=== PATIENT | female | born 2000 | race African-American/Black ===

== ENCOUNTER 2019-11-02 12:06 | Observation (INO) | payer MEDICAID, MEDICARE ==
[~2019-11-02] VITALS: Ht 167.6 cm; Wt 68.0 kg
[2019-11-02 14:01] LABS: CLARITY URINE CLOUDY (CLEAR); COLOR URINE YELLOW (YELLOW); KETONES URINE NEGATIVE (NEGATIVE); LEUKOCYTE ESTERASE URINE 3+ (NEGATIVE); NITRITE URINE NEGATIVE (NEGATIVE); OCCULT BLOOD URINE NEGATIVE (NEGATIVE); PROTEIN URINE NEGATIVE (NEGATIVE); SPECIFIC GRAVITY URINE 1.004 (1.005-1.030); UROBILINOGEN URINE 0.2 E.U./dL (0.2-1.0)
[2019-11-02] MEDS ORDERED: CEFAZOLIN 2,000 MG in DEXT 5% WATER 100 ML IV SCH ×2 (15:15→15:30)
== END 2019-11-02 18:15 | disposition home or self-care (01) ==
LOC: 8 EST LDRP 12:06
PROVIDERS: ADMIT Obstetrics & Gynecology; ATTEND Obstetrics & Gynecology
DX: O26.893 Other specified pregnancy related conditions, third trimester (principal); Z3A.28 28 weeks gestation of pregnancy
CPT/HCPCS: 76805; 76818; 81003; 87086; 99281; G0378; J0690; J7060; 96360; 96361; 96365

== ENCOUNTER 2020-01-05 03:53 | Inpatient (IN) | payer MEDICAID ==
[~2020-01-05] VITALS: Ht 170.2 cm; Wt 67.6 kg
[2020-01-05] MEDS ORDERED: PREN-182 PO (04:25)
[2020-01-05] MEDS ORDERED: LACTATED RINGERS 1,000 ML IV SCH (04:25)
[2020-01-05] MEDS ORDERED: DEXT 5%/LR + PITOCIN 20UNITS/L 1,000 ML IV SCH ×2 (04:25→07:43)
[2020-01-05] MEDS ORDERED: FOLI-43 MT (04:26)
[2020-01-05] MEDS ORDERED: MISOPROSTOL 200MCG TABLET VG SCH (04:30)
[2020-01-05] MEDS ORDERED: METHYLERGONOVINE MALEATE 0.2 MG/ML IM PRN (04:30)
[2020-01-05] MEDS ORDERED: LIDOCAINE HCL 1% 20ML VIAL (Pyxis) INJ INFIL SCH (04:30)
[2020-01-05] MEDS ORDERED: CARBOPROST TROMETHAMINE 250 MCG/ML AMPUL IM PRN (04:30)
[2020-01-05] MEDS ORDERED: BUTORPHANOL TARTRATE 2 MG/ML VIAL IV PRN (04:30)
[2020-01-05] MEDS: AMPICILLIN 2,000 MG in SODIUM CHLORIDE 0.9% 100 ML IV SCH ×2 (05:19→05:25)
[2020-01-05 05:42] LABS: CLARITY URINE CLEAR (CLEAR); COLOR URINE YELLOW (YELLOW); KETONES URINE 1+ (NEGATIVE); LEUKOCYTE ESTERASE URINE 2+ (NEGATIVE); NITRITE URINE NEGATIVE (NEGATIVE); OCCULT BLOOD URINE 2+ (NEGATIVE); PH URINE 6.5 (4.5-8.0); PROTEIN URINE NEGATIVE (NEGATIVE); SPECIFIC GRAVITY URINE 1.005 (1.005-1.030); UROBILINOGEN URINE 0.2 E.U./dL (0.2-1.0)
[2020-01-05 05:45] LABS: BASOPHILS % 0.2 % (0.0-2.0); EOSINOPHILS % 0.1 % (0.0-5.0); HEMATOCRIT. 32.8 % (36.0-48.0); HEMOGLOBIN. 10.7 g/dL (12.0-16.0); LYMPHOCYTES % 7.6 % (20.0-50.0); MEAN CORPUSCULAR HEMOGLOBIN 26.9 pg (28.0-32.0); MEAN CORPUSCULAR VOLUME 82.6 fL (81.0-99.0); MEAN PLATELET VOLUME 10.5 fl (7.4-10.4); MONOCYTES % 13.1 % (2.0-8.0); PLATELET 169 x1000/uL (130-400); RED BLOOD CELL COUNT 3.97 mill/uL (4.2-5.4); RED CELL DISTRIBUTION WIDTH 15.3 % (11.6-14.6)
[2020-01-05 06:08] LABS: INR 0.9; PARTIAL THROMBOPLASTIN TIME 28.2 sec (23.4-31.0)
[2020-01-05 06:23] LABS: *AMPHETAMINES SCREEN URINE NEGATIVE (NEGATIVE); *BARBITURATES SCREEN URINE NEGATIVE (NEGATIVE); *BENZODIAZEPINES SCREEN URINE NEGATIVE (NEGATIVE); *COCAINE SCREEN URINE NEGATIVE (NEGATIVE); HEPATITIS B SURFACE ANTIGEN NEGATIVE; METHADONE URINE SCREEN NEGATIVE (NEGATIVE)
[2020-01-05 06:24] LABS: OPIATES URINE SCREEN NEGATIVE (NEGATIVE); PHENCYCLIDINE URINE SCREEN NEGATIVE (NEGATIVE)
[2020-01-05 06:25] LABS: CANNABINOID URINE SCREEN PRESUMTIVE POSITIVE (NEGATIVE)
[2020-01-05] MEDS ORDERED: ROPIVACAINE HCL/PF EPIDURAL 200 ML EPI SCH (06:45)
[2020-01-05] MEDS ORDERED: RHO(D) IMMUNE GLOBULIN 300 MCG/SYR IM PRN (07:45)
[2020-01-05] MEDS ORDERED: IBUPROFEN 400MG TABLET PO PRN (07:45)
[2020-01-05] MEDS ORDERED: BENZOCAINE/LANOLIN/ALOE VERA SPRAY TOP PRN (07:45)
[2020-01-05 10:45] VITALS: BP 103/47
[2020-01-05 11:00] VITALS: BP 115/61
[2020-01-05] MEDS ORDERED: AMPICILLIN 1,000 MG in SODIUM CHLORIDE 0.9% 50 ML IV SCH (11:00)
[2020-01-05] MEDS: IBUPROFEN 800MG TABLET PO PRN ×2 (14:01→20:31)
[2020-01-05 20:21] VITALS: BP 101/67
[2020-01-06 04:00] VITALS: BP 104/57
[2020-01-06] MEDS: IBUPROFEN 800MG TABLET PO PRN ×2 (04:51→13:56)
[2020-01-06 06:32] LABS: BASOPHILS % 0.4 % (0.0-2.0); EOSINOPHILS % 0.5 % (0.0-5.0); HEMATOCRIT. 25.5 % (36.0-48.0); HEMOGLOBIN. 8.5 g/dL (12.0-16.0); LYMPHOCYTES % 17.5 % (20.0-50.0); MEAN CORPUSCULAR HEMOGLOBIN 27.2 pg (28.0-32.0); MEAN CORPUSCULAR VOLUME 81.8 fL (81.0-99.0); MEAN PLATELET VOLUME 10.4 fl (7.4-10.4); MONOCYTES % 13.6 % (2.0-8.0); PLATELET 153 x1000/uL (130-400); RED BLOOD CELL COUNT 3.11 mill/uL (4.2-5.4); RED CELL DISTRIBUTION WIDTH 15.2 % (11.6-14.6)
[2020-01-06 08:00] VITALS: BP 99/52
[2020-01-06] MEDS: PHENOL/SODIUM PHENOLATE 1.4% SRPAY 177ML MM PRN ×2 (13:57→22:06)
[2020-01-06 14:30] VITALS: BP 112/72
[2020-01-07] MEDS ORDERED: IBUP-2030 PO (01:01)
[2020-01-07] MEDS ORDERED: FERR325T6 MT (01:01)
[2020-01-07 04:00] VITALS: BP 108/60
[2020-01-07 07:39] VITALS: BP 106/54
[2020-01-07] MEDS: PHENOL/SODIUM PHENOLATE 1.4% SRPAY 177ML MM PRN (08:33)
[2020-01-10 04:09] LABS: CANNABINOID CONFIRMATION URINE Positive (.)
== END 2020-01-07 11:20 | disposition home or self-care (01) | DRG 560 ==
LOC: 8 EST LDRP 03:53 → OBSVTOIN 03:53 → 8 EST A/PP 09:35
PROVIDERS: ADMIT Obstetrics & Gynecology; ATTEND Obstetrics & Gynecology
PROC: 10E0XZZ Delivery of Products of Conception, External Approach (ICD-10-PCS; principal; 2020-01-05)
PROC: 0KQM0ZZ Repair Perineum Muscle, Open Approach (ICD-10-PCS; 2020-01-05)
DX: O70.1 Second degree perineal laceration during delivery (principal); Z37.0 Single live birth; Z3A.38 38 weeks gestation of pregnancy
CPT/HCPCS: 36415; 80305; 80349; 81003; 85025; 86592; 86703; 86762; 86850; 86900; 87070; 87340; 99281; J0290; J0595; J2590; J2795; J3490; J7050; J7120